=== PATIENT | male | born 1985 | race Caucasian/White ===

== ENCOUNTER 2023-09-29 18:13 | Emergency (ER) | payer SELFPAY ==
[~2023-09-29] VITALS: Ht 172.7 cm; Wt 82.0 kg
[2023-09-29 18:20] VITALS: BP 147/85; O2SAT 100
[2023-09-29] MEDS ORDERED: NEOM10SO7 RIGHT EAR (23:45)
[2023-09-30] VITALS: PULSE 75; RESP 20; TEMP 98.5
== END 2023-09-30 00:01 | disposition home or self-care (01) ==
LOC: ER 18:13
DX: H61.23 Impacted cerumen, bilateral (principal); H60.501 Unspecified acute noninfective otitis externa, right ear
CPT/HCPCS: 99282